=== PATIENT | female | born 1950 | race Caucasian/White ===

== ENCOUNTER 2023-11-26 09:59 | Outpatient (CLI) | payer OTHER ==
[2023-11-26 11:25] LABS: PH,URINE 5.5 (5.0-8.0); URINE APPEARANCE Clear; URINE BILIRRUBIN Negative (NEGATIVE); URINE BLOOD Negative; URINE COLOR Yellow; URINE GLUCOSE Negative (NEGATIVE); URINE KETONE Negative (NEGATIVE); URINE LEUKOCYTE Trace; URINE NITRATE Negative; URINE PROTEIN Negative (NEGATIVE); URINE UROBILINOGEN 0.2 E.U./dl
[2023-11-26 11:29] LABS: HEMATOCRIT 36.1 % (36.0-45.00); HEMOGLOBIN 12.6 g/dL (12.0-15.00); MEAN CORPUSCULAR HEMOGLOBIN 29.6 pg (27.00-32.0); MEAN CORPUSCULAR HGB CONC 34.8 g/dl (32.0-36.0); PLATELET COUNT 146 K/uL (150-450); RED BLOOD COUNT 4.25 M/uL (4.00-6.00); RED CELL DISTRIBUTION WIDTH 12.8 % (11.5-14.5)
[2023-11-26 11:29] LABS: URINE BACTERIA 36.5 uL (0.0-1933); URINE RBC 5.6 uL (0.0-20.8); URINE WBC 13.4 uL (0.0-23.2)
[2023-11-26 11:51] LABS: COL EPI 100 SECONDS (82-175)
[2023-11-26 11:57] LABS: INR 0.99; PROTHROMBIN TIME 10.8 SECONDS (9.0-11.5)
[2023-11-26 12:14] LABS: URINE CAST 0.15 uL (0.0-1.40)
[2023-11-26 12:16] LABS: ALBUMIN 3.7 gm/dL (3.4-5.0); BILIRUBIN TOTAL 0.55 mg/dL (0.3-1.2); CALCIUM 9.6 mg/dL (8.5-10.1); CREATININE SERUM 0.71 mg/dL (0.55-1.02); GFR 80.69; GLOBULINA 3.3 G/DL (2.4-3.5); POTASSIUM 4.13 mEq/L (3.5-5.1)
== END 2023-11-26 10:20 | disposition home or self-care (01) ==
LOC: LAB 09:59
PROVIDERS: ATTEND Orthopaedic Surgery
DX: D64.9 Anemia, unspecified (principal); E88.89 Other specified metabolic disorders; D68.8 Other specified coagulation defects; N39.0 Urinary tract infection, site not specified; Z22.322 Carrier or suspected carrier of Methicillin resistant Staphylococcus aureus; Z76.89 Persons encountering health services in other specified circumstances; M25.511 Pain in right shoulder; M25.512 Pain in left shoulder